=== PATIENT | female | born 1975 | race Caucasian/White ===

== ENCOUNTER 2017-10-19 17:47 | Inpatient (IN) | payer MEDICARE ==
[~2017-10-19 17:47] MED LIST: DEXAMETHASONE INJ 10 MG/ML VIAL IV ONE; METOCLOPRAMIDE HCL INJ 10 MG/2 ML VIAL IV ONE; NEOSTIGMINE METHYLSULFATE 1 MG/ML ML IV ONE; PROPOFOL 200 MG/20 ML VIAL IV ONE
[2017-10-19] MEDS ORDERED: MORPHINE SULFATE INJ 10 MG/ML VIAL IV ONE (18:35)
[2017-10-19] MEDS ORDERED: ONDANSETRON INJ 4 MG/2 ML VIAL IV ONE (18:36)
--- NOTE | 2017-10-19 20:37 | CT ---
EXAM DESCRIPTION: Abdomen/Pelvis w/Contrast CLINICAL HISTORY: 41 years Female RLQ PAIN COMPARISON: None. TECHNIQUE: Contiguous axial images obtained through the abdomen and pelvis without IV contrast. Reformatted images obtained. This exam was performed according to our department optimization program which includes automated exposure control, adjustment of the mA and/or kv according to patient size and/or use of iterative reconstruction technique. FINDINGS: The lung bases are clear. The liver appears unremarkable. The spleen and pancreas appear unremarkable. No adrenal masses. The kidneys appear unremarkable. No hydronephrosis or definite ureteral calculi. The gallbladder is present. Gallstone is noted. No wall thickening or surrounding inflammation. No aneurysmal dilatation of the aorta. No bowel obstruction. Appendicolith in the proximal appendix. The appendix is dilated to 1 cm and thick-walled. No free pelvic fluid. IMPRESSION: Findings concerning for acute appendicitis with a small amount of adjacent inflammatory change in the right lower quadrant. No evidence of perforation. Dr. Awan was called and notified of the findings at 8:35 PM central time. Electronically signed by: Kelle Burns 10/19/2017 8:36 PM CIVIL PROCESS SERVER
[2017-10-19] MEDS ORDERED: PIPERACILLIN/TAZOBACTAM 3.375 GM in SODIUM CHLORIDE 0.9% 100ML 100 ML IVPB ONE (20:40)
--- NOTE | 2017-10-19 20:42 | ED.PDOC ---
History of Present Illness - General Chief Complaint: Abdominal Pain Stated Complaint: abdominal pain Time Seen by Provider: 10/19/17 18:33 Information Source: patient Exam Limitations: no limitations - History of Present Illness Initial Comments: ABDOMINAL PAIN, ONSET YESTERDAY. SHE WAS ABLE TO SLEEP AND THEN THIS MORNING IT GOT WORSE. NOW IT SEEMS TO BE LOCALIZED ON THE RIGHT LOWER QUADRANT. HER LAST MEAL WAS LAST NIGHT. Abdominal Pain Onset Location: RLQ Pain Radiation: no radiation Quality: severe, stabbing Timing/Duration: 24 hours Worsening Factors: nothing Associated Symptoms: denies symptoms Review of Systems - Review of Systems Constitutional: States: fever, malaise EENTM: States: no symptoms reported Respiratory: States: no symptoms reported Cardiology: States: no symptoms reported Gastrointestinal/Abdominal: States: abdominal pain, nausea Genitourinary: States: no symptoms reported Musculoskeletal: States: no symptoms reported Skin: States: no symptoms reported Neurological: States: no symptoms reported Endocrine: States: no symptoms reported Hematologic/Lymphatic: States: no symptoms reported Past Medical History (General) - Patient Medical History Hx Seizures: No Hx Stroke: Yes - TIA Hx Asthma: Yes Hx of COPD: No Hx Cardiac Disorders: - RHEUMATIC FEVER Hx Thyroid Disease: No Hx Diabetes: No Hx Gastroesophageal Reflux: No Surgical History: other Family Medical History - Family History Mother Family History: No Known Physical Exam - Physical Exam General Appearance: Alert, Ill Appearing, Well Developed, Well Groomed Eyes, Ears, Nose, Throat Exam: PERRL/EOMI, normal ENT inspection, TMs normal, pharynx normal Neck: non-tender, full range of motion, supple Respiratory: chest non-tender, lungs clear, normal breath sounds Cardiovascular/Chest: normal peripheral pulses, regular rate, rhythm, no edema, no gallop, no JVD Gastrointestinal/Abdominal: normal bowel sounds, guarding - RLQ, tenderness - TO MCBURNEY'S POINT. , other - NEGATIVE PSOAS. POSITIVE HEEL TAP Progress - Results/Orders Results/Orders: WBC'S ARE 15,000. THE CT ABDOMEN IS CONSISTENT WITH ACUTE APPENDICITIS. DR. CARLSON HAS BEEN CONTACTED AND WILL CONSULT. Departure - Departure Clinical Impression: Acute appendicitis Qualifiers: Acute appendicitis type: with localized peritonitis Qualified Code(s): K35.3 - Acute appendicitis with localized peritonitis Time of Disposition: 20:47 Disposition: Admit Patient Condition: Good Decision To Admit - Decistion To Admit Decision to Admit Reason: Admit from ER Decision to Admit Date: 10/19/17 Decision to Admit Time: 20:46
[2017-10-19] MEDS ORDERED: SODIUM CHLORIDE 0.9% 100ML 100 ML IVPB ONE (20:46)
[2017-10-19] MEDS ORDERED: PIPERACILLIN/TAZOBACTAM 3.375 GM VIAL IVPB ONE (20:46)
[2017-10-19] MEDS ORDERED: SODIUM CHLORIDE 0.9% 1000ML 1,000 ML ONE (21:52)
[2017-10-19] MEDS ORDERED: SODIUM CHLORIDE 0.9% 1000ML 1,000 ML IVS ONE (21:53)
[2017-10-19] MEDS ORDERED: fentaNYL CITRATE INJ 50 MCG/ML AMP ONE (22:22)
[2017-10-19] MEDS ORDERED: LACTATED RINGERS 1,000 ML ONE (22:22)
[2017-10-19] MEDS ORDERED: ROCURONIUM BROMIDE 10 MG/ML VIAL ONE (22:23)
[2017-10-19] MEDS ORDERED: BUPIVACAINE 0.25% W/EPI 50 ML VIAL INJ ONE ×2 (22:56)
[2017-10-19] MEDS ORDERED: ONDANSETRON INJ 4 MG/2 ML VIAL IV PRN (23:33)
--- NOTE | 2017-10-20 00:14 | HP ---
CHIEF COMPLAINT: Abdominal pain. HISTORY OF PRESENT ILLNESS: The patient is a 41-year-old female who was in her normal state of health until yesterday when she developed abdominal pain that moved to the right lower quadrant and worsened. She had a feeling of fever, but no fever and chills. She has not eaten since yesterday. There is some anorexia, but she has not vomited. There has been on change in her bowel habits. Otherwise, she is in her normal health. PAST MEDICAL HISTORY: 1. Bipolar disorder. 2. Posttraumatic stress disorder. 3. Rheumatic fever as a child. 4. Transient ischemic attack 1 to 1-1/2 years ago from a blood clot of uncertain etiology. The patient does live out of town and we have no medical records. PAST SURGICAL HISTORY: 1. times one 2. Childbirth times two. 3. Tubal ligation. 4. Laparoscopically assisted hysterectomy. CURRENT MEDICATIONS: 1. Fluoxetine. 2. Estradiol. 3. Lorazepam. 4. Simvastatin. 5. Aspirin. ALLERGIES: NO KNOWN DRUG ALLERGIES. FAMILY HISTORY: Negative for anesthesia complications. SOCIAL HISTORY: The patient is and moved here to [place]. She uses alcohol rarely. She has approximately a 20 pack year history of tobacco abuse. REVIEW OF SYSTEMS: There is no chest pain, shortness of breath, no weight loss , no change in her bowel habits, no blood per rectum, no bloody vomitus. She has had no real urinary tract symptoms. PHYSICAL EXAMINATION: GENERAL: The patient is awake, alert, cooperative, in mild distress. VITAL SIGNS: The patient is currently afebrile, normotensive. HEENT: Sclerae nonicteric. Mucous membranes moist. NECK: Without adenopathy. BACK: Without CVA tenderness. CHEST: Equal breath sounds bilaterally anteriorly. HEART: Regular rate and rhythm, but almost click. ABDOMEN: Soft. There is tenderness in the right lower quadrant. Minimal guarding. PELVIC/RECTAL: Deferred. EXTREMITIES: Without cyanosis, clubbing or edema. LABORATORY: Urinalysis with a specific gravity greater than 1.030, small bilirubin, small blood, large mucus. CBC shows white count 15,000, hemoglobin 13.4, 68% neutrophils, 237 platelet count. Creatinine 0.89, glucose 112, potassium 3.4. Liver functions within normal limits. EKG shows sinus rhythm with a short MI interval, nonspecific ST abnormality. CT scan shows inflammatory process in the area of the appendix consistent with appendicitis, no signs of obstruction or other pathology. ASSESSMENT: 1. Right lower quadrant abdominal pain. 2. Leukocytosis. 3. Abnormal CT scan suspicious for appendicitis. PLAN: The risks, benefits and alternatives to appendectomy were discussed and accepted by the patient in the presence of her family. The hospitalist service has been called and they will see the patient in consultation to deal with her bipolar disorder and any other problem that occur including blood pressure and heart. #[id number] [facility]ENTER[facility]ena
[2017-10-20] MEDS: DEX 5% W/NACL 0.45% 1000ML 1,000 ML IVS PRN ×2 (00:41→17:46)
[2017-10-20] MEDS ORDERED: ALBUTEROL SULFATE 2.5 MG/3 ML VIAL NEB PRN (01:41)
--- NOTE | 2017-10-20 01:43 | PCM.CORE ---
Physician DVT/VTE - Nurse DVT Assessment & Total Each Risk Factor Represents 3 Points: Hx of DVT/PE Each Risk Factor Represents 2 Points: Major Surgery >45 minutes Each Risk Factor Represents 1 Point: Age 41-60, Hx of smoking past year DVT Assessment Score: 7 - 5 or more Very High Risk Treatments: Early Ambulation *, Sequential Compression Device Pharmacological: Enoxaparin 40mg SQ Daily
[2017-10-20] MEDS ORDERED: PIPERACILLIN/TAZOBACTAM 3.375 GM VIAL IVPB ONE ×5 (02:10→19:29)
[2017-10-20] MEDS ORDERED: SODIUM CHLORIDE 0.9% 100ML 100 ML IVPB ONE ×5 (02:11→19:29)
[2017-10-20] MEDS: PIPERACILLIN/TAZOBACTAM 3.375 GM in SODIUM CHLORIDE 0.9% 100ML 100 ML IVPB SCH ×4 (02:24→19:50)
[2017-10-20] MEDS: PANTOPRAZOLE SODIUM IV 40 MG VIAL IV SCH (06:36)
[2017-10-20] MEDS: MORPHINE SULFATE INJ 10 MG/ML VIAL IV PRN ×2 (07:18→09:50)
--- NOTE | 2017-10-20 08:12 | CONS ---
SUPERVISING PHYSICIAN: Sushil Martinez MD REASON FOR CONSULTATION: Appendectomy. HISTORY OF PRESENT ILLNESS: Ms. Echols is a 41-year-old, female patient who presented to the Emergency Department on 10/19/17 complaining of abdominal pain that had started the day before. She noted she was able to sleep , but on the morning of 10/19/17, the paint had gotten worse and become more localized to the right lower quadrant. She noted there was no radiation, but the pain was described as stabbing. She then presented to the Emergency Department for further evaluation. Initial lab work showed that she had a leukocytosis of 15,100 with a left shift. Urinalysis showed just a small amount of blood and small amount of bilirubin with microscopic unremarkable. She then had an abdominopelvic CT with contrast and per radiologic interpretation there were findings concerning for acute appendicitis with a small amount of adjacent inflammatory changes in the right lower quadrant with no evidence of perforation. Dr. Awan, the Emergency Room physician, consulted with Dr. Kaminski, general surgeon. Dr. Kaminski took the patient to surgery for emergency laparoscopic appendectomy. She has a history of smoking and rheumatic fever with a previous embolic stroke within the last two years as well as depression and posttraumatic stress disorder, so Dr. Kaminski, general surgeon, requested medical consultation to assist with close management of the patient. The patient is seen in the immediate postoperative state in stable condition. PAST MEDICAL HISTORY: 1. Posttraumatic stress disorder from unknown trauma. 2. Depression. 3. Rheumatic fever as a child with no mention of sequelae of valvular problem. 4. Cardiovascular accident secondary to a blood clot two years previously with no residual effects. 5. Hyperlipidemia. PAST SURGICAL HISTORY: 1. Hysterectomy. 2. Tubal ligation. 3. . 4. Foot surgery. CURRENT MEDICATIONS: 1. Prozac 20 mg daily. 2. Lorazepam p.r.n. 3. Simvastatin 20 mg daily. 4. Aspirin 325 mg daily. 5. Multivitamin. ALLERGIES: NO KNOWN DRUG ALLERGIES. FAMILY HISTORY: Unremarkable. SOCIAL HISTORY: The patient resides in [place], [place]. 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 The patient travels back and forth and stays in a local hotel while her works. She does have one child and is disabled secondary to posttraumatic stress disorder. She does smoke approximately half a pack a day. She denies any alcohol or illicit drug use. REVIEW OF SYSTEMS: CONSTITUTIONAL: Subjective fever, not taken at home. General malaise. HEENT: Denies sinus congestion, headaches, sore throat. RESPIRATORY: Denies cough, shortness of breath, wheezing. CARDIOVASCULAR: Denies chest pain or palpitations. No syncopal episodes. GASTROINTESTINAL: As noted in history of present illness, right lower quadrant abdominal pain with some nausea. GENITOURINARY: Denies dysuria, hematuria or other urinary symptoms. NEUROLOGIC: Denies any neurologic deficits, headaches, syncopal episodes. PSYCHIATRIC: History of depression and posttraumatic stress disorder with no reported symptoms, suicidal or homicidal ideations. PHYSICAL EXAMINATION: VITAL SIGNS: Preoperative vital signs showed temperature 98.5, afebrile, pulse 71, blood pressure 109/71, respirations 18, saturation 100% on room air. Postoperative, temperature 97.9, pulse 79, blood pressure 104/70, saturation 96 % on 2 liters, respirations 18. GENERAL: The patient appears to be comfortable in no acute distress. She is drowsy, but alert, easily arousable. She appears well hydrated. HEENT: Tympanic membranes clear bilaterally. Oropharynx is pink, moist without any lesions. NECK: Supple, nontender with full range of motion. No jugular venous distention noted. CHEST: Lungs clear to auscultation bilaterally without any rhonchi, wheezes, or rales. CARDIOVASCULAR: Regular rate and rhythm without any appreciable murmurs, gallops, or rubs. ABDOMEN: Soft, tender with some guarding. She was splinting with coughing. There are three incisional band-aids in place. Bowel sounds hypoactive. EXTREMITIES: There is no cyanosis, clubbing or edema. NEUROLOGIC: The patient is alert and oriented times three. Cranial nerves II- XII are grossly intact. Facial features are symmetrical. Extraocular movements are within normal limits. There is no nystagmus noted. LABORATORY: Preoperative laboratory included a CBC that showed leukocytosis of 15,100, hemoglobin 13.4, hematocrit 39.9, platelet count 267,000, differential did show early left shift. Chemistries showed mild hypokalemia of 3.4, sodium 138, anion gap 11.4, BUN 12, creatinine 0.9, glucose 112. Liver function were within normal limits. Calcium 9.6, lipase 33. Urinalysis showed just a small amount of blood with a trace of ketones and small amount of bilirubin. Microscopic within normal limits. Postoperative labs are pending. MICROBIOLOGY: No specimens submitted. RADIOLOGY: Abdominopelvic CT in the Emergency Room before surgery and admission and per radiologic interpretation showed findings concerning for acute appendicitis with a small amount of adjacent inflammatory changes in the right lower quadrant with no evidence of perforation. ASSESSMENT: 1. Postoperative day 0 from laparoscopic appendectomy for acute appendicitis. 2. Abdominal pain secondary to acute appendicitis. 3. Leukocytosis secondary to acute appendicitis with no evidence of perforation on CT scan with the patient being afebrile. 4. History of depression. 5. History of posttraumatic stress disorder of undescribed trauma. 6. History of rheumatic fever as a child with no cardiac sequelae. 7. Cardiovascular accident in 2016 due to a blood clot of uncertain etiology with the patient being on aspirin. PLAN: The patient was seen in immediate postoperative state. We will follow the patient medically as she recovers and surgical management will be through Dr. Kaminski. We will anticipate discharge either later today or tomorrow if there are no complications. She will be on DVT prophylaxis postoperatively as per protocol. I will provide her with a nicotine patch as needed, 15 mg daily. Given that she is a smoker, we will go ahead and start her on some DuoNeb treatments q.i.d. with incentive spirometry to prevent any postoperative complications. She will be encouraged to stop smoking. We will continue to follow the patient, monitor closely and treat appropriately until discharge. #[id number] [facility]
[2017-10-20] MEDS: ENOXAPARIN SODIUM 40 MG/0.4 ML SYG SUBCU SCH (08:29)
[2017-10-20] MEDS: IPRATROPIUM/ALBUTEROL 3 ML VIAL NEB SCH ×4 (08:46→20:11)
[2017-10-20] MEDS ORDERED: MAGNESIUM HYDROXIDE 30 ML UD PO ONE (10:26)
[2017-10-20] MEDS: HYDROcodone 5MG/APAP 325MG 1 EA TAB PO PRN ×3 (10:51→19:49)
--- NOTE | 2017-10-20 11:30 | OP ---
DATE OF PROCEDURE: 10/19/17 PREOPERATIVE DIAGNOSIS: 1. Right lower quadrant abdominal pain. 2. Leukocytosis. 3. Abnormal CT scan suspicious for appendicitis. POSTOPERATIVE DIAGNOSIS: 1. Right lower quadrant abdominal pain. 2. Leukocytosis. 3. Abnormal CT scan suspicious for appendicitis. 4. Acute appendicitis. PROCEDURE: 1. Laparoscopic appendectomy. SURGEON: Servando Kaminski MD. GOGGLES ASSEMBLER: None. ANESTHESIA: General endotracheal anesthesia and local infiltration of 0.25% Marcaine with epinephrine. INDICATION: The patient is a 41-year-old female in her normal state of health until 24 hours or so ago when she developed abdominal pain. It worsened and moved to the right lower quadrant. She had some anorexia, was feverish, but no measured fever. She presented to the Emergency Room and was found to have a white count of 15,000. CT scan showed a thickened appendix with periappendiceal inflammatory process, also gallstones, but no inflammation around the gallbladder. After the risks, benefits and alternatives to the procedure were discussed along with her medical issues, the decision was made to proceed with appendectomy tonight. She was brought to the Surgical Suite for the same. She was given IV Zosyn in the Emergency Room and it will be continued postoperatively. FINDINGS: The appendix was thickened with a small amount of exudate. There was no free fluid essentially identified. No other pathology was identified other than the fact that her anterior abdominal wall was extremely thin. PROCEDURE: After adequate general endotracheal anesthesia was obtained, the patient was prepped and draped in the usual sterile manner. A George catheter was placed. At this time, a surgical time-out was taken. A curvilinear incision was fashioned in the inferior aspect of the umbilicus, first with infiltration of anesthesia and then with a sharp knife. Dissection was carried down through the skin to the midline fascia using blunt dissection. Retractors were placed and traction sutures of 0 Vicryl were placed on either side of the midline. A small incision was made in the midline fascia. The peritoneum was opened bluntly. Cris trocar was introduced under direct vision into the abdominal cavity and fixed in place with a 20 mL balloon. CO2 was then insufflated until a pressure of 12 mmHg was reached and the abdomen was tympanitic in all four quadrants. When this was done, the laparoscope was introduced and the abdomen was inspected with the previously noted findings. A suprapubic port was placed under direct vision in the usual manner. The right lower quadrant was explored and the appendix was identified. At this point, the left lower quadrant port was placed and the appendix was elevated. The base of the appendix was identified and the mesoappendix was divided at the base of the appendix using blunt dissection. The Endo-CELESTINE was used with a vascular load and the base of the appendix was stapled and divided. Likewise, the mesoappendix was then divided with two firings of the Endo-CELESTINE. The appendix was removed from the left lower quadrant port in the usual manner under direct vision. When this was done, the right lower quadrant was carefully inspected. Two sponges were used to blot in the area of the appendiceal stump. Good hemostasis was noted. At this point, the left lower quadrant port was removed under direct vision after the 4x4s were removed. The in the left lower quadrant was approximated with two simple sutures of 0 Vicryl placed using the EndoClose device. When these were tightened and tied, hemostasis was noted to be adequate. At this point, the suprapubic port was removed. Adequate hemostasis was noted. At this point, the CO2, the laparoscope and the infraumbilical port were removed. The infraumbilical port site fascia was approximated with a single lqctad-df-aydin suture of 0 Vicryl. Subcutaneous tissue was irrigated copiously with saline. Skin edges were approximated with a skin stapler loosely. Sterile dressings were applied. The George catheter was removed. The patient was awakened and taken to the Recovery Room in stable condition. The patient tolerated the procedure well. Estimated blood loss was approximately 25 mL. All sponge, needle and instrument counts were correct. #[id number] [facility]
[2017-10-20] MEDS: KETOROLAC TROMETHAMINE INJ 30 MG/ML VIAL IV SCH ×2 (16:43→23:48)
--- NOTE | 2017-10-20 19:52 | PN ---
DATE: 10/20/17 SUPERVISING PHYSICIAN: Sushil Martinez M.D. SUBJECTIVE: The patient is sitting up in bed. Complains of lower abdominal pain and just generalized weakness. She did walk in the [place] several times today and feels like she is getting stronger. Denies chest pain, nausea, vomiting, diarrhea or constipation. OBJECTIVE: VITAL SIGNS: She is afebrile, heart rate 63, blood pressure 106/64, respiratory rate 20, O2 sat is 95% on room air. RESPIRATORY: Essentially clear to auscultation bilaterally. CARDIAC: Regular rate and rhythm. She is at times bradycardic. ABDOMEN: Soft, nondistended, non-tender. Bowel sounds are positive. She does have a dressing to the abdomen that is dry and intact. EXTREMITIES: No cyanosis, clubbing or edema. NEUROLOGIC: She is awake, alert and oriented times three. LABORATORY: WBCs have dropped from 15.1 yesterday to 11.4 today with hemoglobin 12.2 and hematocrit 36.6, neutrophils are 96.7%. Electrolytes are basically within normal limits with a slightly elevated glucose of 132 and calcium 8.3. All other labs and films have been reviewed via the EMR. ASSESSMENT: 1. Postoperative day 0 from laparoscopic appendectomy for acute appendicitis. 2. Abdominal pain secondary to acute appendicitis. 3. Leukocytosis secondary to acute appendicitis that has improved. 4. History of depression. 5. History of posttraumatic stress disorder from undescribed trauma. 6. History of rheumatic fever as a child with no cardiac sequelae. 7. Cardiovascular accident in 2016 due to a blood clot of uncertain etiology with the patient being on aspirin. PLAN: We will continue present supportive care. Postoperative issues will be per Dr. Kaminski. I have discussed her case with Dr. Kaminski and she should be discharged tomorrow as long as she tolerates her diet overnight and continues to improve clinically. She will see Dr. Kaminski after discharge. We discussed at length smoking cessation as well as her discharge plan. Otherwise we will continue to monitor closely and follow as needed. Dr. Martinez is the collaborating physician available for consultation. #[id number] [facility]
[2017-10-21] MEDS: PIPERACILLIN/TAZOBACTAM 3.375 GM in SODIUM CHLORIDE 0.9% 100ML 100 ML IVPB SCH ×2 (02:05→07:43)
[2017-10-21] MEDS: DEX 5% W/NACL 0.45% 1000ML 1,000 ML IVS PRN (04:03)
[2017-10-21 05:14] VITALS: O2SAT 99
[2017-10-21] MEDS: PANTOPRAZOLE SODIUM IV 40 MG VIAL IV SCH (06:39)
[2017-10-21] MEDS: HYDROcodone 5MG/APAP 325MG 1 EA TAB PO PRN ×2 (06:39→11:28)
[2017-10-21 07:13] VITALS: BP 102/70; TEMP 98.3
[2017-10-21] MEDS ORDERED: SODIUM CHLORIDE 0.9% 100ML 100 ML IVPB ONE (07:21)
[2017-10-21] MEDS ORDERED: PIPERACILLIN/TAZOBACTAM 3.375 GM VIAL IVPB ONE (07:21)
[2017-10-21] MEDS: KETOROLAC TROMETHAMINE INJ 30 MG/ML VIAL IV SCH (07:36)
[2017-10-21] MEDS: ENOXAPARIN SODIUM 40 MG/0.4 ML SYG SUBCU SCH (07:43)
[2017-10-21] MEDS: IPRATROPIUM/ALBUTEROL 3 ML VIAL NEB SCH (08:45)
[2017-10-22] MEDS ORDERED: PANTOPRAZOLE SODIUM TAB 40 MG PO SCH (06:30)
--- NOTE | 2017-10-23 18:24 | DS ---
SUPERVISING PHYSICIAN: Sushil Martinez M.D. DISCHARGE DIAGNOSIS: 1. Postoperative day 1 from laparoscopic appendectomy for acute appendicitis performed by Dr. Servando Kaminski, general surgeon. 2. Abdominal pain secondary to acute appendicitis. 3. Leukocytosis secondary to acute appendicitis that has improved. 4. History of depression. 5. History of posttraumatic stress disorder from undescribed trauma. 6. History of rheumatic fever as a child with no cardiac sequelae. 7. Cardiovascular accident in 2016 due to a blood clot of uncertain etiology with the patient being on aspirin. HISTORY OF PRESENT ILLNESS: This is a 41 year-old female patient who presented to the Emergency Room on 10/19/17 complaining of abdominal pain that started the day before. She was able to sleep, but on the morning of 10/19/17 the pain had gotten worse and became more localized to the right lower quadrant. There was no radiation. She describes just stabbing pain. She came to the Emergency Room for further evaluation. Her initial labs showed leukocytosis of 15,100 with a left shift. Urinalysis showed a small amount of blood and a small amount of bilirubin with her microscopic unremarkable. She had an abdominal/ pelvic CT with contrast and per radiology interpretation showed findings concerning for acute appendicitis with a small amount of adjacent inflammatory changes in the right lower quadrant with no evidence of perforation. HOSPITAL COURSE: Dr. Kaminski, general surgeon, was consulted and took the patient for emergency laparoscopic appendectomy. She has a history of smoking as well as rheumatic fever with a previous embolic stroke in the last year on aspirin as well as depression and posttraumatic stress disorder. Postoperatively she did very well. She had no problems. She did have some pain control issues initially but overnight she ambulated and has only minimal pain. She has had no other complications during the postoperative phase. Her vital signs were stable. She was afebrile. At this point, she can be discharged home. DISCHARGE PLAN: The patient will be discharged home in good condition. She is to slowly increase her diet as tolerated. She is to increase her fluids. If she becomes nauseated, she can occasionally add some electrolyte type drink. She is also to take Ibuprofen in addition to her Braymer for pain. She is recommended not to take tub baths until her followup with Dr. Kaminski. Her followup with Dr. Kaminski is on 11/01/17 at 2:00 PM. She is to return to the hospital or call her primary care physician for any further problems or complications. DISCHARGE MEDICATIONS: 1. Simvastatin. 2. Lorazepam. 3. Fluoxetine. 4. Estradiol. 5. Multiple vitamins. 6. Augmentin. 7. Hydrocodone. #[id number] [facility]
== END 2017-10-21 11:40 | disposition home or self-care (01) | DRG 343 ==
LOC: ER 17:47 → AMB 22:14 → MS 10-20 00:13
PROVIDERS: ADMIT Surgery; ATTEND Nurse Practitioner Acute Care
PROC: 0DTJ4ZZ Resection of Appendix, Percutaneous Endoscopic Approach (ICD-10-PCS; principal; 2017-10-19 22:29)
DX: K35.80 Unspecified acute appendicitis (principal); F43.10 Post-traumatic stress disorder, unspecified; F17.210 Nicotine dependence, cigarettes, uncomplicated; E78.5 Hyperlipidemia, unspecified; F31.9 Bipolar disorder, unspecified; Z86.718 Personal history of other venous thrombosis and embolism; Z79.82 Long term (current) use of aspirin; Z86.73 Personal history of transient ischemic attack (TIA), and cerebral infarction without residual deficits

== ENCOUNTER 2017-12-31 12:51 | Emergency (ER) | payer MEDICARE ==
--- NOTE | 2017-12-31 13:24 | ED.PDOC ---
History of Present Illness - General Chief Complaint: GI Problem Stated Complaint: lower abdominal pain/rectal bleeding Time Seen by Provider: 12/31/17 12:53 Information Source: patient Exam Limitations: no limitations - History of Present Illness Initial Comments: Brianda Echols 42 y/o female stated that she fell on her belly last Wednesday and felt lower dull abdominal pain intermiitently after the incident no nausea/ vomiting ,no hematemesis but today had bowel movement noted bright red blood in stool with abdominal cramps. Abdominal Pain Onset Location: other - lower abdomen Quality: cramping Timing/Duration: 24 hours Improving Factors: nothing Worsening Factors: nothing Associated Symptoms: other - see hpi Review of Systems - Review of Systems Constitutional: States: no symptoms reported EENTM: States: no symptoms reported Respiratory: States: no symptoms reported Cardiology: States: no symptoms reported Gastrointestinal/Abdominal: States: see HPI Genitourinary: States: no symptoms reported Musculoskeletal: States: no symptoms reported All other Systems: Reviewed and Negative, No Change from Baseline Past Medical History (General) - Patient Medical History Hx Seizures: No Hx Stroke: Yes - TIA Hx Asthma: Yes - uses proair inhaler Hx of COPD: No Hx Cardiac Disorders: - RHEUMATIC FEVER Hx Congestive Heart Failure: No Hx Pacemaker: No Hx Hypertension: No Hx Thyroid Disease: No Hx Diabetes: No Hx Gastroesophageal Reflux: No Hx MRSA: No Surgical History: appendectomy - hysterectomy,cs, other - Social History Hx Alcohol Use: No Hx Substance Use: No Hx Physical Abuse: No Hx Emotional Abuse: No - Female History Patient : No Family Medical History - Family History Mother Family History: No Known Living Status: Age at (years of age): 57 Hx Family Hypertension: Yes Hx Family Diabetes: Yes Hx Family Cancer: Yes - Lung Father Age (years): 65 Living Status: Still Living Hx Family Stroke: Yes Hx Family Diabetes: Yes Physical Exam - Physical Exam General Appearance: Alert, Comfortable, No apparent distress Eyes, Ears, Nose, Throat Exam: normal ENT inspection Neck: full range of motion, supple, normal inspection Respiratory: lungs clear, normal breath sounds Cardiovascular/Chest: regular rate, rhythm, no murmur Peripheral Pulses: No deficit Gastrointestinal/Abdominal: normal bowel sounds, soft, tenderness - lower abdominal area no peritoneal signs Rectal Exam: normal rectal tone, heme positive stool Back Exam: no vertebral tenderness, CVA tenderness (R) Extremity: no pedal edema, no calf tenderness Neurologic: alert, oriented x 3 Skin Exam: normal color, warm/dry Departure - Departure Clinical Impression: Rectal bleed, Abdominal cramps Time of Disposition: 16:12 Disposition: Discharge to Home or Self Care Condition: Fair Departure Forms: ED Discharge - Pt. Copy, Patient Portal Self Enrollment Instructions: DI for Rectal Bleeding Home Medications: Ambulatory Orders Estradiol 1 mg PO DAILY 10/20/17 Fluoxetine HCl 20 mg PO DAILY 10/20/17 LORazepam [Ativan] 0.5 mg PO BID PRN 10/20/17 Multiple Vitamin [Multi Vitamin] 1 tab PO DAILY 10/20/17 Simvastatin 20 mg PO BEDTIME 10/20/17 Amoxicillin & Pot Clavulanate [Augmentin Tab] 875 mg PO BID #10 tab 10/21/17 HYDROcodone 5MG/APAP 325MG [Gail 5/325] 1 ea PO Q4H PRN #30 tab 10/21/17 Additional Instructions: Return to emergency room as needed;NEED TO MAKE APPOINTMENT WITH PRIMARY Md for referral to GI specialsit;Avoid spicy greasy foods ;High fiber diet(google)
[2017-12-31] MEDS ORDERED: SODIUM CHLORIDE 0.9% 1000ML 1,000 ML IVS ONE (13:28)
[2017-12-31 13:57] VITALS: TEMP 97.6
--- NOTE | 2017-12-31 15:39 | CT ---
CT OF ABDOMEN AND THE PELVIS WITH INTRAVENOUS CONTRAST CLINICAL HISTORY: rectalbleeding /abdominal cramps COMPARISON: CT of October 19, 2017 TECHNIQUE: Routine CT protocol following intravenous contrast (100 mL Optiray 320) administration. Oral contrast was administered. Image reformations performed in coronal and sagittal planes. Imaging was performed utilizing automated exposure control for dose reduction. FINDINGS: LUNG BASES: Limited visualization demonstrate minimal gravitational atelectasis in dependent portions of both lung bases. ABDOMEN: Small and large bowel loops are normal in caliber without obstruction or obvious inflammation. Appendix is surgically absent. No pneumatosis or intraperitoneal free air is identified. No abscess adjoining visualized bowel loops. Liver, spleen, pancreas, and adrenal glands are unremarkable in appearance. Gallbladder continues to contain a calcified stone measuring 8 mm. No obstructive uropathy nor calcific nephrolithiasis in either kidney. Abdominal aorta, its major mesenteric branches and iliac arteries are patent without aneurysmal dilatation or flow limiting stenosis nor dissection. No concerning mesenteric or retroperitoneal lymphadenopathy. Lumbar spine demonstrate unremarkable alignment without focal injury. PELVIS: Bladder is mildly distended. Unremarkable changes of prior hysterectomy. No pericolonic inflammation in sigmoid: Or along rectum. No perirectal abscess is identified. No perianal inflammation. No concerning lymphadenopathy nor bony injury in the pelvis. IMPRESSION: 1. No bowel obstruction nor perforation nor joining abscess. 2. No concerning intraperitoneal lymphadenopathy. 3. No inflammation along sigmoid colon, rectum, or perianal region. 4. Cholelithiasis Electronically signed by: Pieter Rubi MD 12/31/2017 3:37 PM CDT
[2017-12-31 16:47] VITALS: BP 112/64; O2SAT 97
== END 2017-12-31 16:45 | disposition home or self-care (01) ==
LOC: ER 12:51
DX: K62.5 Hemorrhage of anus and rectum (principal); R10.30 Lower abdominal pain, unspecified; J45.909 Unspecified asthma, uncomplicated; Z86.73 Personal history of transient ischemic attack (TIA), and cerebral infarction without residual deficits